=== PATIENT | female | born 1985 | race Caucasian/White ===

== ENCOUNTER → 2020-01-07 | Outpatient (CLI) | payer OTHER ==
--- NOTE | 2020-01-13 11:47 | MM ---
Reason for exam: clinical finding. Baseline mammogram. History: Patient is nulliparous. Taking hormonal contraceptives beginning at age 20. Physical Findings: Nurse Summary: 1cm nodule in the left breast at 6 o'clock (nurse harvinder). MG Diagnostic Mammo w CAD SULEIMAN Bilateral CC and MLO view(s) were taken. The breast tissue is extremely dense which could obscure a lesion on mammography. There is no discrete abnormality. These results were verbally communicated with the patient and result sheet given to the patient on 01/07/20. ASSESSMENT: Benign, BI-RAD 2 RECOMMENDATION: Aspiration of the left breast. Ultrasound core biopsy of both breasts. Called Dr. Aguilera's office with mammographic findings and has scheduled an appointment for the patient for 02/13/20 at 1:[address] Gonzalez. Biopsy scheduled for 01/22/20 at 1:00. PRELIMINARY REPORT CALLED AND FAXED TO DR. GONZALEZ ON 01/13/20.
--- NOTE | 2020-01-13 11:52 | USB ---
Reason for exam: clinical finding. History: Patient is nulliparous. Taking hormonal contraceptives beginning at age 20. US Breast BILAT Technologist: Ronna Dennis Right complete breast ultrasound includes all four quadrants, the retroareolar region and axilla. Finding demonstrates a 0.4 x 0.6 x 0.2cm hypoechoic lesion at 12 o'clock, a 0.7 x 0.6 x 0.3cm hypoechoic lesion at 12 o'clock, a 1.5 x 0.8 x 0.7cm lymph node at the axilla, large lymph node with thick cortex and a 1.2 x 0.9 x 0.5cm mixed lesion at 8 o'clock for which a biopsy is recommended. Left limited breast ultrasound including focal area of concern, retroareolar and axilla demonstrates a 0.5 x 0.5 x 0.4cm cystic lesion at 5 o'clock, a 0.9 x 0.9 x 0.4cm mixed lesion at 6 o'clock, a 1.5 x 1.3 x 1.0cm circular, cystic lesion at 6 o'clock with interval echoes, thick walled for which an aspiration is recommended, a 0.8 x 0.8 x 0.4cm oval lesion at 6 o'clock, a 0.6 x 0.6 x 0.5cm hypoechoic lesion at 6 o'clock for which a biopsy is recommended and a 1.7 x 0.7 x 0.5cm lymph node at the axilla. These results were verbally communicated with the patient and result sheet given to the patient on 01/07/20. ASSESSMENT: Suspicious, BI-RAD 4 RECOMMENDATION: Aspiration of the left breast. Ultrasound core biopsy of both breasts. Called Dr. Aguilera's office with mammographic findings and has scheduled an appointment for the patient for 02/13/20 at 1:[address] Frazier. Biopsy scheduled for 01/22/20 at 1:00. PRELIMINARY REPORT CALLED AND FAXED TO DR. FRAZIER ON 01/13/20.
== END | disposition home or self-care (01) ==
LOC: RADMAMWWP 06:57
PROVIDERS: ATTEND Family Medicine
DX: N63.20 Unspecified lump in the left breast, unspecified quadrant (principal)
CPT/HCPCS: 77066

== ENCOUNTER → 2020-01-26 | Day surgery (SDC) | payer OTHER ==
[2020-01-26 12:22] VITALS: BP 107/64; PULSE 78; RESP 16; TEMP 99.2
--- NOTE | 2020-01-26 17:50 | USB ---
EXAMINATION TYPE: US discontinued breast bx RT (1 site) and LT (2 sites) DATE OF EXAM: 01/26/2020 COMPARISON: Ultrasound and mammogram from 01/07/2020 HISTORY: 34-year-old female initially presented with palpable lump 6:00 left breast. TECHNIQUE: Preprocedural scanning of the intended target sites, right breast 8:00 and left breast 6:0 0 (2 sites) FINDINGS: In the right breast, the intended 8:00 zone BC, ovoid mixed biopsy target was no longer as well-defin ed as on the initial 01/07/2020 ultrasound. Biopsy is deferred for six-month follow-up. In the left breast, the intended 6:00 zone A aspiration targeted compatible with a complicated, debri s-filled cyst shows decreasing size currently measuring 1.1 cm versus 1.5 cm, previously. The patient also reports decrease in size of the clinically palpable abnormality. In the left breast, the intended 6:00 zone BC vague area of shadowing has become even less defined fr om the initial ultrasound. Area of shadowing breast tissue is suspected and six-month follow-up is re commended. Findings and impression were discussed with the patient. IMPRESSION: BI-RADS 3, probably benign RECOMMENDATION: 1. Six-month follow-up targeted right and left breast ultrasounds for the 3 areas mentioned above. 2. If an enlarging palpable abnormality develops or the patient's complicated cysts become symptomati c, the patient can be referred for a rescan or aspiration at a sooner time. 3. Patient should continue monthly self breast exam.
== END ==
LOC: RADUSWWP 12:03
PROVIDERS: ATTEND Surgery
DX: N63.20 Unspecified lump in the left breast, unspecified quadrant (principal); N60.02 Solitary cyst of left breast; N63.10 Unspecified lump in the right breast, unspecified quadrant; Z53.8 Procedure and treatment not carried out for other reasons